=== PATIENT | female | born 1975 | race Caucasian/White ===

== ENCOUNTER → 2020-08-27 07:31 | Outpatient (CLI) | payer BC, SELFPAY ==
--- NOTE | ~2020-08-27 | MM_ITS ---
EXAMINATION: MM screening tyrell BI w dino HISTORY: Screening TECHNIQUE: Craniocaudal and mediolateral oblique 3-D tomosynthesis images were obtained and synthetic 2-D images were generated. CAD analysis was submitted and interpreted. COMPARISON: Comparison to multiple prior studies sequentially, with oldest reviewed study dated 07/20. BREAST PARENCHYMAL COMPOSITION: The breasts are heterogenously dense, which may obscure small masses. FINDINGS: There is no evidence of suspicious mass, calcification, or architectural distortion to sugg est malignancy in either breast. There has been no suspicious interval change. IMPRESSION: 1. No mammographic evidence of malignancy. 2. Recommend routine screening mammography in one year. BI-RADS Category 1: Negative Reviewed, dictated and finalized at location A.
== END ==
PROVIDERS: Visit Provider Nurse Practitioner
DX: Z12.31 Encounter for screening mammogram for malignant neoplasm of breast (principal)
CPT/HCPCS: 77063; 77067

== ENCOUNTER → 2021-05-06 14:25 | Outpatient (CLI) | payer BC, SELFPAY ==
--- NOTE | ~2021-05-06 | US_ITS ---
EXAMINATION: US thyroid EXAM DATE: 05/06/2021 14:37 INDICATION: Nontoxic single thyroid nodule. TECHNIQUE: Multiple grayscale and Doppler images of the thyroid were obtained (by a technologist who performed the scan) and subsequently reviewed. Individual nodules and recommendations may be reporte d in accordance with TI-RADS system as designated by the 2017 ACR White Paper TI-RADS committee. The re is no prior study for comparison. FINDINGS: The right thyroid lobe measures 6.5 x 1.5 x 1.5 cm, the left measuring 5.6 x 1.4 x 1.5 cm, dimensions are mildly enlarged. There is homogeneous thyroid parenchyma. Single category TR 3 nodule in the lef t thyroid lobe measuring 8 x 5 x 9 mm requiring no further ultrasonic follow-up unless palpable abnor mality develops. IMPRESSION: 1. Small left thyroid nodule. 2. Mild thyromegaly. Return to clinical follow-up and if additional palpable abnormality develops a repeat ultrasound can be obtained. Reviewed, dictated and finalized at location B.
== END ==
PROVIDERS: Visit Provider Nurse Practitioner
DX: E04.1 Nontoxic single thyroid nodule (principal); E01.0 Iodine-deficiency related diffuse (endemic) goiter
CPT/HCPCS: 76536

== ENCOUNTER → 2021-08-29 10:18 | Outpatient (CLI) | payer BC, SELFPAY ==
--- NOTE | ~2021-08-29 | MM_ITS ---
EXAMINATION: MM screening tyrell BI w dino HISTORY: Screening mammogram TECHNIQUE: Craniocaudal and mediolateral oblique 3-D tomosynthesis images were obtained and synthetic 2-D images were generated. CAD analysis was submitted and interpreted. COMPARISON: 08/27/2020, 07/20/2018, 07/09/2018 BREAST PARENCHYMAL COMPOSITION: The breasts are heterogeneously dense, which may obscure small masses . FINDINGS: RIGHT BREAST: There are masses in the subareolar aspect of the breast as well as posterior third of t he lower breast at the 6:00 location. LEFT BREAST: There is no evidence of suspicious mass, calcification, or architectural distortion to s uggest malignancy. There has been no significant interval change. IMPRESSION: 1. Right breast masses. 2. Additional mammographic views and possible breast ultrasound are recommended. BI-RADS Category 0: Incomplete: Needs additional imaging evaluation. Reviewed, dictated and finalized at location A. IMPRESSION: 1. Right breast masses. 2. Additional mammographic views and possible breast ultrasound are recommended . BI-RADS Category 0: Incomplete: Needs additional imaging evaluation.
== END ==
PROVIDERS: PCP Internal Medicine; Visit Provider Nurse Practitioner
DX: Z12.31 Encounter for screening mammogram for malignant neoplasm of breast (principal); R92.8 Other abnormal and inconclusive findings on diagnostic imaging of breast
CPT/HCPCS: 77063; 77067

== ENCOUNTER → 2021-09-25 07:47 | Outpatient (CLI) | payer BC, SELFPAY ==
--- NOTE | ~2021-09-25 | MMUS_ITS ---
EXAMINATION: MM diagnostic tyrell RT w dino, US breast RT complete HISTORY: Palpable right breast abnormality TECHNIQUE: Additional 3-D tomosynthesis images of the right breast were performed and synthetic 2-D i mages were generated. CAD analysis was submitted and interpreted. High resolution complete right [facility] ultrasound was performed. COMPARISON: Comparison to multiple prior studies sequentially, with oldest reviewed study dated 12/2014. BREAST PARENCHYMAL COMPOSITION: The breasts are heterogenously dense, which may obscure small masses. FINDINGS: MAMMOGRAPHIC FINDINGS: There is a subareolar mass in the right breast which is obscured by dense fibroglandular tissue. Ther e are no suspicious calcifications or architectural distortion. ULTRASOUND: Complete bilateral US of all 4 quadrants of the breasts and retroareolar region was reviewed. There a re multiple cyst throughout the right breast, largest measuring 2.6 cm greatest dimension. No suspici ous masses to suggest malignancy. IMPRESSION: 1. No evidence for malignancy in the right breast. Multiple cysts. 2. Routine yearly screening mammogram and regular clinical breast examination are recommended. BI-RADS Category 2: Benign finding(s). Reviewed, dictated and finalized at location A. IMPRESSION: 1. No evidence for malignancy in the right breast. Multiple cysts. 2. Routine yearly screening mammogram and regular clinical breast examination a re recommended. BI-RADS Category 2: Benign finding(s).
== END ==
PROVIDERS: Visit Provider Obstetrics & Gynecology Gynecology
DX: R92.8 Other abnormal and inconclusive findings on diagnostic imaging of breast (principal)
CPT/HCPCS: 76641; 77061; 77065; G0279

== ENCOUNTER → 2021-12-19 14:35 | Outpatient (CLI) | payer BC, SELFPAY ==
--- NOTE | ~2021-12-19 | MR_ITS ---
EXAMINATION: MR cervical spine wo/w con DATE: 12/19/2021 16:34 INDICATION: Cervical myelopathy. TECHNIQUE: Magnetic resonance imaging (MRI) of the cervical spine was performed without and with 15 m L MultiHance intravenous contrast. Sequences included sagittal and axial T2-weighted FSE, sagittal ST IR FSE, and sagittal and axial T1-weighted FSE. Postcontrast sequences included sagittal and axial T1 -weighted FS FSE. COMPARISON: None FINDINGS: There is kyphosis of cervical spine. Vertebral body heights are normal. There is mildly dec reased disc height at C4-C5, C5-C6, and C6-C7. The spinal cord signal intensity is normal. The follow ing disc levels are specifically discussed: C2-C3: The disc does not extend beyond the endplate margin. There is no uncovertebral joint osteoarth ritis. There is no facet joint osteoarthritis. There is no neural foraminal stenosis. There is no dona tral canal stenosis. C3-C4: The disc does not extend beyond the endplate margin. There is no uncovertebral joint osteoarth ritis. There is no facet joint osteoarthritis. There is no neural foraminal stenosis. There is no dona tral canal stenosis. C4-C5: The disc does not extend beyond the endplate margin. There is no uncovertebral joint osteoarth ritis. There is no facet joint osteoarthritis. There is no neural foraminal stenosis. There is no dona tral canal stenosis. C5-C6: The disc is bulging. There is moderate bilateral uncovertebral joint osteoarthritis. There is no facet joint osteoarthritis. There is no neural foraminal stenosis. There is mild central canal derian nosis. C6-C7: There is a central protrusion. There is mild right and moderate left uncovertebral joint osteo arthritis. There is no facet joint osteoarthritis. There is mild left neural foraminal stenosis. Ther e is mild central canal stenosis. C7-T1: The disc does not extend beyond the endplate margin. There is no uncovertebral joint osteoarth ritis. There is moderate right and severe left facet joint osteoarthritis. There is mild bilateral ne ural foraminal stenosis. There is no central canal stenosis. IMPRESSION: 1. Mild cervical spondylosis. Reviewed, dictated and finalized at location A. CRUSHING DUST COLLECTOR
--- NOTE | ~2021-12-19 | MR_ITS ---
EXAMINATION: MR brain/brain stem wo/w con DATE: 12/19/2021 16:34 INDICATION: Vertigo of central origin. TECHNIQUE: Magnetic resonance imaging (MRI) of the brain and brainstem was performed without and with 15 mL MultiHance intravenous contrast. Sequences included sagittal and axial T1-weighted FSE, axial diffusion-weighted FS EPI, axial T2*-weighted GRE, axial T2-weighted FLAIR Propeller, and axial T2-we ighted Propeller. Postcontrast sequences included axial and coronal T1-weighted FSE. Apparent diffusi on coefficient (ADC) maps were created. COMPARISON: None. FINDINGS: There are scattered areas of nonspecific increased T2-weighted signal intensity in the cere bral white matter, which is within normal limits for the patient's age. There is no intracranial hemo rrhage, acute infarction, or abnormal intracranial mass lesion. The ventricles are normal in size. Th e paranasal sinuses are clear. The orbits are normal. The internal auditory canals and inner and midd le ears are normal. The mastoid air cells are normal. IMPRESSION: 1. Normal aging brain. Reviewed, dictated and finalized at location A. ENT INFORMATION COORDINATOR IMPRESSION: 1. Normal aging brain.
[2021-12-19 15:19] LABS: Estimated Glomerular Filt Rate > 60
== END ==
DX: G95.9 Disease of spinal cord, unspecified (principal); H81.4 Vertigo of central origin; M47.812 Spondylosis without myelopathy or radiculopathy, cervical region
CPT/HCPCS: 70553; 72156; A9577

== ENCOUNTER → 2022-05-30 07:55 | Outpatient (CLI) | payer BC, SELFPAY ==
--- NOTE | ~2022-05-30 | US_ITS ---
EXAMINATION: US transvaginal DATE: 05/30/2022 08:19 INDICATION: Iron deficiency anemia. Comparison:01/21/2006 TECHNIQUE: Multiple transabdominal and endovaginal sonographic images of the pelvis performed. FINDINGS: The uterus measures 9.9 x 5.2 6.8 cm. The endometrial complex measures 9 mm. The right ovary measures 2.8 x 2.2 x 3 cm and the left ovary measures 2.6 x 1.6 x 2.4 cm. There are small follicles in each ovary. Normal doppler signal in both ovaries. There is no free fluid in the pelvis. There are no abnormal masses seen on either side. IMPRESSION: 1. Unremarkable pelvic ultrasound. Reviewed, dictated and finalized at location A.
== END ==
PROVIDERS: PCP Nurse Practitioner; Visit Provider Nurse Practitioner
DX: D50.9 Iron deficiency anemia, unspecified (principal)
CPT/HCPCS: 76830

== ENCOUNTER → 2022-11-30 16:13 | Outpatient (CLI) | payer BC, SELFPAY ==
--- NOTE | ~2022-11-30 | MM_ITS ---
EXAMINATION: MM screening tyrell BI w dino HISTORY: Screening mammogram TECHNIQUE: Craniocaudal and mediolateral oblique 3-D tomosynthesis images were obtained and synthetic 2-D images were generated. CAD analysis was submitted and interpreted. COMPARISON: 09/2020 diagnostic right mammogram and complete right breast ultrasound 08/29/2021, 08/27/2020 bilateral screening mammogram examinations BREAST PARENCHYMAL COMPOSITION: The breasts are heterogeneously dense, which may obscure small masses . FINDINGS: Right breast: Multiple right breast masses are noted, possibly cysts, given relatively circumscribed margins and lo w density. Right diagnostic mammogram and right breast ultrasound examination are recommended. Left breast: There is no evidence of suspicious mass, calcification, or architectural distortion to suggest malig simba in either breast. There has been no suspicious interval change. IMPRESSION: 1. Multiple right breast masses 2. Diagnostic right mammogram and right breast ultrasound examination are recommended BI-RADS Category 0: Incomplete: Needs additional imaging evaluation. Reviewed, dictated and finalized at location A. BASE MARKETING ANALYST IMPRESSION: 1. Multiple right breast masses 2. Diagnostic right mammogram and right breast ultrasound examination are recom mended BI-RADS Category 0: Incomplete: Needs additional imaging evaluation.
== END ==
PROVIDERS: PCP Internal Medicine; Visit Provider Nurse Practitioner
DX: Z12.31 Encounter for screening mammogram for malignant neoplasm of breast (principal); N63.10 Unspecified lump in the right breast, unspecified quadrant
CPT/HCPCS: 77063; 77067

== ENCOUNTER → 2022-12-25 09:12 | Outpatient (CLI) | payer BC, SELFPAY ==
--- NOTE | ~2022-12-25 | MMUS_ITS ---
EXAMINATION: MM diagnostic tyrell RT w dino, US breast RT complete HISTORY: Follow-up right breast masses TECHNIQUE: Additional 3-D tomosynthesis images of the right breast were performed and synthetic 2-D i mages were generated. CAD analysis was submitted and interpreted. High resolution complete right [facility] ultrasound was performed. COMPARISON: Comparison to multiple prior studies sequentially, with oldest reviewed study dated 07/09. BREAST PARENCHYMAL COMPOSITION: The breasts are extremely dense, which lowers the sensitivity of mamm ography. FINDINGS: MAMMOGRAPHIC FINDINGS: There are partially obscured masses in the subareolar/periareolar location of the right breast which are obscured by fibroglandular tissue. No suspicious calcifications or architectural distortion. ULTRASOUND: Complete US of all 4 quadrants of the right breast and retroareolar region was reviewed. There are mu ltiple simple cysts throughout the right breast, largest at 12:00, 3 cm from the nipple measuring up to 3.3 cm. No suspicious sonographic abnormalities to suggest malignancy. IMPRESSION: 1. No evidence for malignancy in the right breast. Benign findings. 2. Routine yearly screening mammogram and regular clinical breast examination are recommended. BI-RADS Category 2: Benign finding(s). Reviewed, dictated and finalized at location A. THERMAL CUTTER IMPRESSION: 1. No evidence for malignancy in the right breast. Benign findings. 2. Routine yearly screening mammogram and regular clinical breast examination a re recommended. BI-RADS Category 2: Benign finding(s).
== END ==
PROVIDERS: PCP Internal Medicine; Visit Provider Obstetrics & Gynecology Gynecology
DX: R92.8 Other abnormal and inconclusive findings on diagnostic imaging of breast (principal)
CPT/HCPCS: 76641; 77061; 77065; G0279

== ENCOUNTER → 2023-01-04 09:23 | Outpatient (CLI) | payer BC, SELFPAY ==
--- NOTE | ~2023-01-04 | US_ITS ---
EXAMINATION: US thyroid DATE: 01/04/2023 09:37 INDICATION: Thyroid nodule. TECHNIQUE: Multiple ultrasound images of the thyroid were obtained. COMPARISON: Thyroid ultrasound 05/06/2021 FINDINGS: The right thyroid lobe measures 6.2 x 1.8 x 1.6 cm. The left thyroid lobe measures 4.4 x 1.2 x 1.9 c m. In the left thyroid lobe, there is a 9 mm solid, isoechoic, wider than tall nodule with ill-defin ed margin without echogenic foci (TI-RADS TR3). IMPRESSION: 1. Small thyroid nodule, likely not clinically significant. No follow-up is needed. Reviewed, dictated and finalized at location A. MOBILE DAMAGE APPRAISER IMPRESSION: 1. Small thyroid nodule, likely not clinically significant. No follow-up is nee ded.
== END ==
PROVIDERS: PCP Internal Medicine; Visit Provider Internal Medicine Endocrinology, Diabetes & Metabolism
DX: E04.1 Nontoxic single thyroid nodule (principal)
CPT/HCPCS: 76536

== ENCOUNTER → 2023-12-30 14:15 | Outpatient (CLI) | payer BC, SELFPAY ==
--- NOTE | ~2023-12-30 | MM_ITS ---
EXAMINATION: MM screening tyrell BI w dino HISTORY: Screening mammogram TECHNIQUE: Craniocaudal and mediolateral oblique 3-D tomosynthesis images were obtained and synthetic 2-D images were generated. CAD analysis was submitted and interpreted. COMPARISON: December 25, 2022 diagnostic right mammogram and complete right breast ultrasound November 30, 2022, August 29, 2021 bilateral screening mammogram examinations BREAST PARENCHYMAL COMPOSITION: The breasts are heterogeneously dense, which may obscure small masses . FINDINGS: Approximately 3.5 cm partially circumscribed partially obscured low density mass in right s ubareolar area. Diagnostic mammogram and right breast ultrasound are recommended. Otherwise there is no evidence of suspicious mass, calcification, or architectural distortion to sug gest malignancy in either breast. There has been no other suspicious interval change. IMPRESSION: 1. . 3.5 cm right subareolar breast mass 2. Recommend diagnostic right mammogram and right breast ultrasound. BI-RADS Category 0: Incomplete: Needs additional imaging evaluation. Reviewed, dictated and finalized at location A. NERATOR PLANT GENERAL SUPERVISOR
== END ==
PROVIDERS: PCP Obstetrics & Gynecology Gynecology; Visit Provider Obstetrics & Gynecology Gynecology
DX: Z12.31 Encounter for screening mammogram for malignant neoplasm of breast (principal); N63.41 Unspecified lump in right breast, subareolar
CPT/HCPCS: 77063; 77067

== ENCOUNTER 2024-02-02 07:48 | Outpatient (CLI) | payer BC, SELFPAY ==
--- NOTE | ~2024-02-02 | MMUS_ITS ---
EXAMINATION: MM diagnostic tyrell RT w dino, US breast RT complete HISTORY: 3.5 cm subareolar right breast mass reported on December 30, 2023 screening mammogram TECHNIQUE: Additional 3-D tomosynthesis images of the right breast were performed and synthetic 2-D i mages were generated. CAD analysis was submitted and interpreted. High resolution complete right [facility] ultrasound examination including all 4 quadrants and subareolar area was performed. COMPARISON: None FINDINGS: MAMMOGRAPHIC FINDINGS: Approximately 3.2 x 3.9 cm circumscribed low-density mass is noted in the right subareolar area. Extremely dense stroma of the right breast may obscure additional masses. ULTRASOUND: Multiple cysts are noted including the followin:00 5 cm from nipple: 5 x 16 x 15 mm simple cyst 12:00 subareolar: Contiguous 14.6 x 22 mm and 9 x 23 mm cysts 12:00 subareolar: 15 x 31 mm cyst 12:00 subareolar: 7.4 x 22 mm cyst 1:00 subareolar: 6 x 10 mm cyst 2:00 subareolar: 4.6 x 9 mm cyst 6:00 subareolar: 3.3 x 6.8 and 3.8 x 4.7 mm cysts 1:00 subareolar area: Irregular hypoechoic 5.5 mm lesion with adjacent vessel and color flow imaging. No through transmission is noted. The irregular margins and adjacent vascularity are of concern. Ult rasound-guided biopsy is recommended. IMPRESSION: 1. Irregular hypoechoic indeterminate 1:00 subareolar mass 2. Ultrasound-guided biopsy of 1:00 subareolar mass is recommended BI-RADS category 4, suspicious findings. Dr. Valerio telephoned the report and ultrasound-guided biopsy recommendation for the right breast 1:00 subareolar lesion on 02/02/2024 at 0901 hours to Sujatha, Beef Cattle Farm Worker. Reviewed, dictated and finalized at location A. IMPRESSION: 1. Irregular hypoechoic indeterminate 1:00 subareolar mass 2. Ultrasound-guided biopsy of 1:00 subareolar mass is recommended BI-RADS category 4, suspicious findings. Dr. Valerio telephoned the report and ultrasound-guided biopsy recommendation for the right breast 1:00 subareolar lesion on 02/02/2024 at 0901 hours to Sujatha, Be[employer] Cattle Farm Worker.
== END 2024-02-02 07:49 ==
LOC: MICIMG 07:49
PROVIDERS: PCP Obstetrics & Gynecology Gynecology; Visit Provider Obstetrics & Gynecology Gynecology
DX: R92.8 Other abnormal and inconclusive findings on diagnostic imaging of breast (principal)
CPT/HCPCS: 76641; 77061; 77065; G0279

== ENCOUNTER 2024-05-10 07:58 | Outpatient (CLI) | payer BC, SELFPAY ==
--- NOTE | ~2024-05-10 | US_ITS ---
EXAMINATION: US thyroid DATE: 05/10/2024 08:12 INDICATION: Nodule of left lobe of thyroid. TECHNIQUE: Multiple ultrasound images of the thyroid were obtained. COMPARISON: Ultrasound 01/04/2023 FINDINGS: The right thyroid lobe measures 5.5 x 1.3 x 1.5 cm. The left thyroid lobe measures 5.4 x 1.3 x 1.5 c m. In the left thyroid lobe, there is a 12 mm solid, isoechoic, wider than tall nodule with ill-defi tmo margin without echogenic foci (TI-RADS TR3). IMPRESSION: 1. Small thyroid nodule, likely not clinically significant. No follow-up is needed. Reviewed, dictated and finalized at location A. IMPRESSION: 1. Small thyroid nodule, likely not clinically significant. No follow-up is nee ded.
== END 2024-05-10 07:59 ==
LOC: MICIMG 07:58
PROVIDERS: PCP Nurse Practitioner Family; Visit Provider Nurse Practitioner Family
DX: E04.1 Nontoxic single thyroid nodule (principal)
CPT/HCPCS: 76536